=== PATIENT | female | born 1925 | race Caucasian/White ===

== ENCOUNTER → 2016-06-25 | Outpatient (REF) | payer MEDICARE, OTHER ==
[~2016-06-25] MED LIST: ASPI81TA45 OR; ATEN25TA OR; CLIN150C OR; MULTIVIT OR; SENO8.6T5 OR; VIT D 4000 OR; [UNRECOGNIZED DRUG - CODE] OR
[2016-06-25 13:11] LABS: IONIZED CALCIUM 4.6 MG/DL (4.5-5.3)
== END ==
LOC: M LABDRAW1 12:43
PROVIDERS: ATTEND Physician Assistant Medical
DX: M81.0 Age-related osteoporosis without current pathological fracture (principal); E55.9 Vitamin D deficiency, unspecified

== ENCOUNTER → 2016-11-06 | Outpatient (CLI) | payer MEDICARE, OTHER ==
--- NOTE | 2016-11-06 17:34 | REPMRS ---
Patient History The patient states she had a clinical breast exam in 10/2016. Patient is postmenopausal. Family history of breast cancer in daughter, premenopausal breast cancer in daughter under age 50, and premenopausal breast cancer in daughter at age 50. Taking estrogen for 4 years. Digital Woman Screen Mammo: November 06, 2016 - Exam #: [id number] Bilateral CC and MLO view(s) were taken. Technologist: Tere Coleman, Technologist Prior study comparison: November 03, 2015, digital woman screen mammo performed at [facility] [employer] [facility]. September 15, 2014, digital woman screen mammo performed at [facility] [employer] [facility]. FINDINGS: There are scattered fibroglandular densities. There has been no change in the appearance of the mammogram from the prior studies. There is a mild amount of residual fibroglandular tissue which is fairly symmetric. There is no interval development of dominant mass, architectural distortion, or clustered microcalcification suggestive of malignancy. ASSESSMENT: BI-RADS/ACR category 1 mammogram. Negative. Recommendation Routine screening mammogram in 1 year (for women over age 40). This mammogram was interpreted with the aid of an FDA-approved computer-aided dectection system. Electronically Signed By: Donis Barber MD 11/06/16 1006
== END ==
LOC: M WHC 13:17
PROVIDERS: ATTEND Nurse Practitioner Women's Health
DX: Z12.31 Encounter for screening mammogram for malignant neoplasm of breast (principal); Z78.0 Asymptomatic menopausal state; Z80.3 Family history of malignant neoplasm of breast; N95.2 Postmenopausal atrophic vaginitis
CPT/HCPCS: G0101; G0202

== ENCOUNTER → 2016-12-26 | Outpatient (REF) | payer MEDICARE, OTHER ==
[2016-12-26 15:53] LABS: IONIZED CALCIUM 4.6 MG/DL (4.5-5.3)
[2016-12-26 16:24] LABS: CALCIUM LEVEL 8.6 MG/DL (8.8-10.2)
== END ==
LOC: M LABDRAW1 15:34
PROVIDERS: ATTEND Internal Medicine Endocrinology, Diabetes & Metabolism
DX: M81.0 Age-related osteoporosis without current pathological fracture (principal)